=== PATIENT | male | born 1955 | race Caucasian/White ===

== ENCOUNTER 2016-09-26 18:30 | Emergency (ER) | payer MEDICAID ==
[2016-09-26] MEDS ORDERED: SODIUM CHLORIDE 0.9% 1000ML 1,000 ML IVS ONE (20:12)
--- NOTE | 2016-09-26 20:24 | ED.PDOC ---
History of Present Illness - General Chief Complaint: GI Problem Stated Complaint: loss of appetite Time Seen by Provider: 09/26/16 20:10 Source: patient, RN notes reviewed, Vital Signs reviewed, family, senior care records, old records Exam Limitations: physical impairment - unable to speak, cognition impared - History of Present Illness Initial Comments: Patient is a 61 y/o male who is a resident of [facility]. He had a stroke about one year ago and was in a SNF in [place] until 09/16/2016 when he was transferred to [place]. His children report that Patient has been unable to swallow. This initially started about 2 months ago, but has worsened significantly, and at this time, he is not eating or drinking anything. His children state that he appears dehydrated and he has had significantly decreased urination. His weight at admission at [facility] was 131. Patient's weight today was 115. Patient had a chest x-ray on 09/20/2016 which showed central bronchitis with linear opacity right mid/lower lung which may relate to atelectasis or early consilidation. Labs performed on 09/25/2016--abnormals--Hb 13.5, Hct 39.8, Na 147, BUN 26, T. Prot. 5.8, Serum Osm. 298. Timing/Duration: getting worse, other - 2 months Severity: severe Improving Factors: nothing Worsening Factors: nothing Associated Symptoms: cough, weakness Allergies/Adverse Reactions: Allergies NO KNOWN ALLERGY Allergy (Verified 09/19/15 09:58) Home Medications: Ambulatory Orders Hydrochlorothiazide 25 mg PO DAILY 09/19/15 Lisinopril 40 mg PO DAILY 09/19/15 Losartan Potassium [Cozaar] 50 mg PO DAILY 09/19/15 Review of Systems - Review of Systems Constitutional: States: weakness EENTM: States: no symptoms reported Respiratory: States: cough Gastrointestinal/Abdominal: States: other - unable to eat or drink Genitourinary: States: other - decreased urination Skin: States: dryness Neurological: States: pre-existing deficit, weakness Endocrine: States: unexplained weight loss Unable to Obtain Due To: clinical condition Past Medical History (General) - Patient Medical History Hx Stroke: Yes - 2015 Hx Congestive Heart Failure: No Hx Hypertension: Yes Hx Diabetes: No - Vaccination History Hx Influenza Vaccination: Yes Hx Pneumococcal Vaccination: Yes - Social History Hx Tobacco Use: Yes - Activities of Daily Living Group Home/Assisted Living (if applicable):: [facility] Family Medical History - Family History Father Family History: Unknown Living Status: Physical Exam - Physical Exam General Appearance: Alert, Frail, Ill Appearing Respiratory: lungs clear, normal breath sounds, no respiratory distress, no accessory muscle use Cardiovascular/Chest: regular rate, rhythm, no edema, no gallop, no murmur Gastrointestinal/Abdominal: normal bowel sounds, non tender, soft, no organomegaly Extremity: non-tender Neurologic: aphasia, motor weakness, depressed affect, disoriented x 3 Skin Exam: normal color, warm/dry Progress - Results/Orders Results/Orders: 09/26/16 09/26/16 09/26/16 19:37 20:00 21:15 Temperature 98.3 F Pulse Rate [ 52 L 56 L 54 L left] Respiratory 16 16 16 Rate Blood Pressure 164/94 155/83 149/79 [right] O2 Sat by Pulse 92 L 95 95 Oximetry 09/26/16 22:33 Temperature Pulse Rate [ 56 L left] Respiratory 16 Rate Blood Pressure 162/95 [right] O2 Sat by Pulse 95 Oximetry 09/26/16 21:01 Hold Metformin x 48Hrs [id number] Abdomen/Pelvis w/Contrast [CT] Stat Laboratory Results WBC 6.7 K/mm3 (4.8-10.8) 09/26/16 20:22 RBC 4.58 M/mm3 (4.70-6.10) L 09/26/16 20:22 Hgb 14.0 gm/dL (14.0-18.0) 09/26/16 20:22 Hct 42.3 % (42.0-52.0) 09/26/16 20:22 MCV 92.5 fl (80.0-94.0) 09/26/16 20:22 MCH 30.5 pg (27.0-31.0) 09/26/16 20:22 MCHC 33.0 g/dL (33.0-37.0) 09/26/16 20:22 RDW 14.6 % (11.5-14.5) H 09/26/16 20:22 Plt Count 220 K/mm3 (130-400) 09/26/16 20:22 MPV 8.3 fl (7.40-10.4) 09/26/16 20:22 Absolute Neuts (auto) 5.00 K/uL (1.8-6.8) 09/26/16 20:22 Absolute Lymphs (auto) 1.20 K/uL (1.0-3.4) 09/26/16 20:22 Absolute Monos (auto) 0.40 K/uL (0.2-0.8) 09/26/16 20:22 Absolute Eos (auto) 0.00 K/uL (0.0-0.4) 09/26/16 20:22 Absolute Basos (auto) 0.00 K/uL (0.0-0.1) 09/26/16 20:22 Neutrophils % 74.6 % (42.0-78.0) 09/26/16 20:22 Lymphocytes % 18.6 % (20.0-50.0) L 09/26/16 20:22 Monocytes % 6.1 % (2.0-9.0) 09/26/16 20:22 Eosinophils % 0.4 % (1.0-5.0) L 09/26/16 20:22 Basophils % 0.3 % (0.0-2.0) 09/26/16 20:22 Sodium 146 mmol/L (135-145) H 09/26/16 20:22 Potassium 3.4 mmol/L (3.6-5.0) L 09/26/16 20:22 Chloride 106 mmol/L (101-111) 09/26/16 20:22 Carbon Dioxide 33 mmol/L (21-31) H 09/26/16 20:22 Anion Gap 10.4 (12-18) L 09/26/16 20:22 BUN 29 mg/dL (7-18) H 09/26/16 20:22 Creatinine 0.74 mg/dL (0.6-1.3) 09/26/16 20:22 BUN/Creatinine Ratio 39.2 (10-20) H 09/26/16 20:22 Random Glucose 100 mg/dL (70-105) 09/26/16 20:22 Serum Osmolality 296.5 mOsm/L (275-295) H 09/26/16 20:22 Calcium 9.5 mg/dL (8.4-10.2) 09/26/16 20:22 Total Bilirubin 0.6 mg/dL (0.2-1.0) 09/26/16 20:22 AST 16 IU/L (10-42) 09/26/16 20:22 ALT 10 IU/L (10-60) 09/26/16 20:22 Alkaline Phosphatase 55 IU/L (42-121) 09/26/16 20:22 Serum Total Protein 7.1 gm/dL (6.4-8.2) 09/26/16 20:22 Albumin 3.6 g/dl (3.2-5.5) 09/26/16 20:22 Globulin 3.5 gm/dL (2.3-3.5) 09/26/16 20:22 Albumin/Globulin Ratio 1.0 (1.1-1.9) L 09/26/16 20:22 CT abd/pelvis with contrast: Reticular nodular bilateral lower lobe adn left lingular infiltrates. No free air in abdomen or pelvis. Severe constipation, suggestion of fecal impaction in rectosigmoid colon. - EKG/XRAY/CT XRAY: chest Xray Comments: Possible free air under diaphragm CT: Abd/pelvis with contrast CT Ordered: Yes CT Interpretation Call Back: No - report sent Departure - Departure Clinical Impression: Aphagia, Weight loss, abnormal, Dehydration Aspiration pneumonia Qualifiers: Aspiration pneumonia type: unspecified Laterality: bilateral Lung location: unspecified part of lung Qualifier Code: (J69.0) Pneumonitis due to inhalation of food and vomit Time of Disposition: 23:10 Disposition: Transfer to Hospital Condition: Poor Home Medications: Ambulatory Orders Hydrochlorothiazide 25 mg PO DAILY 09/19/15 Lisinopril 40 mg PO DAILY 09/19/15 Losartan Potassium [Cozaar] 50 mg PO DAILY 09/19/15 Transfer to Outside Facility - Transfer Information Accepting Provider:: Dr. Morris Accepting Facility: [facility] Reason for Transfer: required specialist not available
--- NOTE | 2016-09-26 21:01 | RAD ---
NAME: LETITIA EDGEPROCEDURE: XR CHEST 1 VIEWORDER DATE: 09/26/2016 8:11 PM CSTACCESSION NUMBER: [id number] Clinical History: Cough/possible aspiration Indication: Same as above Comparison: 09/19/2015 Technique: Single projection of the chest was done. Findings: There is lucency below the left hemidiaphragm, which may represent free air in the abdomen, confirmation of which can be done with a dedicated CT of the abdomen and pelvis There are no discrete airspace infiltrates, pneumothoraces or pleural effusions. The pulmonary vascularity is normal. The cardiomediastinal contour is unremarkable . Dystrophic changes in the left scapula are again noted The findings were discussed with Dr. Elvia Najera, from the ER service at 8:59 PM Impression: There is a lucency below the left hemidiaphragm, which may represent free air in the abdomen, confirmation of which can be done with a dedicated CT of the abdomen and pelvis There is no acute pleural-parenchymal process seen in the imaged lung mcdaniel. Location of Interpretation: [facility] Electronically signed by: Aquilino Looney MD 09/26/2016 9:00 PM [employer] SCM CONSULTANT
[2016-09-26] MEDS ORDERED: AMPICILLIN & SULBACTAM SODIUM 3 GM in SODIUM CHL 0.9% 100ML MINI-BAG 100 ML IVPB ONE (22:56)
[2016-09-26] MEDS ORDERED: AMPICILLIN & SULBACTAM SODIUM 3 GM in SODIUM CHLORIDE 0.9% 100ML 100 ML IVPB ONE (23:22)
[2016-09-27 00:14] VITALS: BP 160/94; TEMP 98.1; O2SAT 94
--- NOTE | 2016-10-20 23:51 | RAD ---
NAME: LETITIA EDGEPROCEDURE: XR CHEST 1 VIEWORDER DATE: 09/26/2016 8:11 PM CSTACCESSION NUMBER: [id number] Clinical History: Cough/possible aspiration Indication: Same as above Comparison: 09/19/2015 Technique: Single projection of the chest was done. Findings: There is lucency below the left hemidiaphragm, which may represent free air in the abdomen, confirmation of which can be done with a dedicated CT of the abdomen and pelvis There are no discrete airspace infiltrates, pneumothoraces or pleural effusions. The pulmonary vascularity is normal. The cardiomediastinal contour is unremarkable . Dystrophic changes in the left scapula are again noted The findings were discussed with Dr. Elvia Najera, from the ER service at 8:59 PM Impression: There is a lucency below the left hemidiaphragm, which may represent free air in the abdomen, confirmation of which can be done with a dedicated CT of the abdomen and pelvis There is no acute pleural-parenchymal process seen in the imaged lung mcdaniel. Location of Interpretation: [facility] Electronically signed by: Aquilino Looney MD 09/26/2016 9:00 PM [employer]URANCE UNDERWRITER SALES
--- NOTE | 2016-10-21 08:13 | CT ---
NAME: LETITIA EDGEPROCEDURE: CT ABDOMEN PELVIS WITH IV CONTRASTORDER DATE: 09/26/2016 9:01 PM CSTACCESSION NUMBER: [id number] Clinical History: Lucency under diaphragm on CXR Indication: Evaluation for free air Comparison: Chest x-ray done on the same day . Technique: CT of the abdomen and pelvis was done with intravenous contrast. Images were obtained from the lung base to the level of the pubic symphysis in axial plane, followed by orthogonal sagittal and coronal reconstruction. Oral contrast was not given for the study. The patient was injected with contrast intravenously, without any documented immediate adverse reactions. Findings: Images through the lung bases show reticular nodular bilateral lower lobe and left lingular infiltrates. There is visualization of an old healed fracture involving one of the left lower ribs. There is no evidence of free air in the abdomen or the pelvis. There is evidence of severe constipation, with suggestion of fecal impaction in the rectosigmoid colon The liver, gallbladder, pancreas, spleen and the bilateral adrenal glands appear unremarkable. The bilateral kidneys enhance with contrast in a normal fashion. The urinary bladder . The bilateral ureters and the bilateral periureteral soft tissues and fat planes are unremarkable. The small bowel appears unremarkable, without any evidence of small bowel obstruction or bowel wall thickening. There is no CT evidence of acute appendicitis, pericecal inflammatory change or ileocecal mesenteric adenitis. The ileocecal junction appears unremarkable. There is no CT evidence of acute colonic diverticulitis or colitis or large bowel obstruction. The splenic and portal veins are of normal caliber, without any filling defects. There is no pathological lymphadenopathy in the retroperitoneum or in the pelvic region. There is no evidence of free fluid or free air in the abdomen or the pelvic region. There is no clinically significant abdominal aortic aneurysm. There is no clinically significant inguinal or ventral hernia. The visualized lumbar spine show underlying multilevel degenerative change . There is ORIF in the proximal left femur The paravertebral soft tissues are unremarkable. The remainder of the pelvic structures are unremarkable. Impression: Images through the lung bases show reticular nodular bilateral lower lobe and left lingular infiltrates. There is visualization of an old healed fracture involving one of the left lower ribs. There is no evidence of free air in the abdomen or the pelvis. There is evidence of severe constipation, with suggestion of fecal impaction in the rectosigmoid colon. Location of Interpretation: [facility] Electronically signed by: Aquilino Looney MD 09/26/2016 10:03 PM INSTRUMENT AND CONTROLS TECHNICIAN
== END 2016-09-26 23:50 | disposition short-term general hospital (02) ==
LOC: ER 18:30
DX: J69.0 Pneumonitis due to inhalation of food and vomit (principal); R13.0 Aphagia; E86.0 Dehydration; I10 Essential (primary) hypertension; R63.4 Abnormal weight loss; K59.00 Constipation, unspecified; Z87.891 Personal history of nicotine dependence; Z86.73 Personal history of transient ischemic attack (TIA), and cerebral infarction without residual deficits